=== PATIENT | female | born 1970 | race Caucasian/White ===

== ENCOUNTER 2016-04-09 11:29 | Emergency (ER) | payer MEDICARE, OTHER ==
[2016-04-09] MEDS ORDERED: ONDANSETRON HCL 4 MG/2 ML VIAL ONE ×2 (11:51→12:14)
[2016-04-09] MEDS ORDERED: HYDROmorphone HCL 1 MG/ML SYR ONE ×2 (11:59→12:13)
[2016-04-09] MEDS ORDERED: LORazepam 2 MG/ML INJ ONE (12:12)
--- NOTE | 2016-04-09 13:23 | ER NURSING DOCUMENTATION ---
Nurse's Notes [facility] Name:Kathy Moseley Age:46 yrs Sex:Female :1970 Arrival Date:04/09/2016 Time:11:29 Bed3 Private MD: Diagnosis:Intractable Vomiting;Chronic Back Pain Presentation: 04/09 10:15 Transition of care: Home. ma 11:37 Acuity: ABDIEL 3 cb 13:18 Presenting complaint: Patient states: Vomiting all night history of liver cirrhosis. ma 13:18 Method Of Arrival: Private Vehicle la Triage Assessment: 11:52 General: Appears distressed, ill, uncomfortable, Behavior is crying, restless. Pain: ma Complains of pain in xyphoid area and right lateral posterior chest. GI: Reports vomiting, since Last night. Historical: - Allergies: No known drug Allergies; - Home Meds: 1. Spironolactone Oral 2. Famotidine Oral 3. oxycodone 15 mg oral Tb12 1 tab every 12 hours q 4-6 hrs 4. Vistaril 50 mg oral cap 1 cap BID 5. Lasix 20 mg oral tab 2 tabs once daily 6. ondansetron HCl 4 mg oral tab daily 7. aspirin 325 mg oral tab Unknown 8. Probiotic Colon Care 1.5 billion cell oral cap - Tetanus: unknown. - Ebola Screening: : No symptoms or risks identified at this time. . - Immunization history: Flu Vaccine unknown. - Social history: Smoking status: unknown if patient ever smoked tobacco. Patient uses alcohol patient/guardian reports chronic longstanding heavy alcohol consumption. Screenin:53 Infectious Disease Risk Hepatitis Other: Possible, hx of cirrhosis, Unknown if ma diagnosed. Abuse screen: Denies threats or abuse. Nutritional screening: No deficits noted. Assessment: 12:20 GI: Abdomen is flat, non- distended. la 12:53 Reassessment: Patient states feeling better. Patient states symptoms have improved. ma Patient appears in no apparent distress at this time. Vital Signs: 11:37 BP 136 / 68; Pulse 73; Resp 24; Temp 98.2(O); Pulse Ox 99% on R/A; Weight 45.36 kg; cb Height 5 ft. 0 in. (152.40 cm); Pain 9/10; 11:48 BP 138 / 99; Pulse 70; Resp 14; Pulse Ox 99% ; ma 12:00 BP 125 / 89; Pulse 70; Pulse Ox 100% on R/A; ma 12:30 BP 95 / 65; Pulse 78; Pulse Ox 100% ; ma 13:17 BP 108 / 69; Pulse 77; Pulse Ox 95% ; ma 11:37 Body Mass Index 19.53 (45.36 kg, 152.40 cm) cb ED Course: 10:45 Inserted peripheral IV: 20 gauge in left antecubital area and blood collected. ma 11:30 Patient arrived in ED. ds 11:37 Triage completed. cb 11:38 Pearl Cohen, RN is Primary Nurse. ma 11:54 Valuables Given to family. Patient has correct armband on for positive identification. ma Placed in gown. Bed in low position. Call light in reach. Pulse ox on. NIBP on. Verbal reassurance given. Warm blanket given. 11:56 Jose Maria Carvajal MD is Attending Physician. tl1 12:53 Discontinued IV intact, bleeding controlled, pressure dressing applied. ma Administered Medications: 10:45 Drug: NS 0.9% 1000 ml; Route: IV; Rate: bolus; Site: left antecubital; Delivery: la [place]; 13:00 Follow up: IV Status: Completed infusion; IV Intake: 1000ml ma 11:52 Drug: Zofran 4 mg; Route: IVP; Rate: per protocol; Infused Over: 2 mins; Site: left la antecubital; 13:20 Follow up: Response: Nausea unchanged ma 11:57 Drug: Dilaudid 1 mg; Route: IVP; Rate: per protocol; Infused Over: 3 mins; Site: left la antecubital; 13:20 Follow up: Response: Pain is unchanged, physician notified ma 12:05 Drug: Zofran 8 mg; Route: IVP; Rate: per protocol; Infused Over: 2 mins; Site: left la antecubital; 13:20 Follow up: Response: Nausea is decreased ma 12:08 Drug: Dilaudid 1 mg; Route: IVP; Rate: per protocol; Infused Over: 3 mins; Site: left la antecubital; 13:21 Follow up: Response: Nausea is decreased ma 12:13 Drug: Ativan 0.5 mg; Route: IVP; Rate: per protocol; Infused Over: 3 mins; Site: left la antecubital; 13:21 Follow up: Response: Anxiety decreased ma Intake: 13:00 IV: 1000ml; Total: 1000ml. ma Outcome: 13:08 Discharge ordered by . tl1 13:19 Discharged to home ma 13:19 Condition: improved 13:19 Discharge instructions given to patient, Instructed on discharge instructions, follow up and referral plans. Demonstrated understanding of instructions, Prescriptions given X 1. 13:21 Patient left the ED. la 04/10 11:26 Discharge F/U Call: Unable to reach: no answer 04/11 10:22 Discharge F/U Call: Unable to reach: no answer Signatures: Maria Del Carmen Allred, RN RN Tara Rahman RN RN Pearl Valera, LISSETT RN ildefonso Matias, Britney, Jose Maria Hernandez MD MD tl1
--- NOTE | 2016-04-11 13:22 | ER PHYSICIAN DOCUMENTATION ---
Physician Documentation [facility] Name:Kathy Moseley Age:46 yrs Sex:Female :1970 Arrival Date:04/09/2016 Time:11:29 Bed3 Private MD: Jose Maria Alvarez Disposition: 04/09 12:30 Chart complete. tl1 Disposition: 04/09/16 13:08 Discharged to Home/Self Care. Impression: Intractable Vomiting, Chronic Back Pain. - Condition is Good. - Discharge Instructions: BACK PAIN (Acute or Chronic), CONSTIPATION (Adult), VOMITING (6y-Adult). - Prescriptions for Zofran 8 mg Oral Tablet - take 1 tablet by ORAL route every 12 hours; 20 tablet. - Medical Reconciliation form form. - Follow up: Private Physician; When: 4- 6 days; Reason: Recheck today's complaints, Continuance of care. - Problem is new. - Symptoms have improved. HPI: 11:30 This 46 yrs old Female presents to ER via Private Vehicle with complaints of tl1 Vomiting. 11:30 The patient presents to the emergency department with nausea, with vomiting. Onset: The tl1 symptom(s)/episode began/occurred suddenly, yesterday. 11:30 She is visiting from [facility] with family. She has chronic low back pain and takes tl1 oxycodone chronically for this. She says she occasionally gets nauseated for no apparent reason. This occurred last night and she says that Zofran has not worked. She has been unable to keep her pain medication or her Xanax down, and she is BIB family (twin sister) for evaluation. 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 She does have some abdominal soreness, and some pain with vomiting. There is nothing, however out of the ordinary for her and she has been through very similar episodes in the past. She feels like if she can get the pain and nausea under control, she'll be fine until she flies home tomorrow. She has enough pain meds. Historical: - Allergies: No known drug Allergies; - Home Meds: 1. Spironolactone Oral 2. Famotidine Oral 3. oxycodone 15 mg oral Tb12 1 tab every 12 hours q 4-6 hrs 4. Vistaril 50 mg oral cap 1 cap BID 5. Lasix 20 mg oral tab 2 tabs once daily 6. ondansetron HCl 4 mg oral tab daily 7. aspirin 325 mg oral tab Unknown 8. Probiotic Colon Care 1.5 billion cell oral cap - Tetanus: unknown. - Ebola Screening: : No symptoms or risks identified at this time. . - Immunization history: Flu Vaccine unknown. - Social history: Smoking status: unknown if patient ever smoked tobacco. Patient uses alcohol patient/guardian reports chronic longstanding heavy alcohol consumption. ROS: 11:30 Abdomen/GI: Positive for abdominal pain, nausea, vomiting, Negative for diarrhea, tl1 constipation, abdominal distension, hematemesis, black/tarry stool, rectal bleeding. 11:30 Back: Positive for pain with movement, of the lumbar area. 11:30 All other systems are negative. Exam: 11:30 Constitutional: The patient appears alert, awake, well developed, emaciated, in obvious tl1 distress, in obvious pain, restless, uncomfortable. 11:30 Head/face: Exam is negative for acute changes. 11:30 Eyes: Sclera: icterus, is not appreciated. 11:30 ENT: External ear(s): are unremarkable, Mouth: Oral mucosa: pink and intact, dry. 11:30 Neck: External neck: is normal, ROM/movement: is normal. 11:30 Cardiovascular: Rate: normal, Rhythm: regular, Heart sounds: normal, Edema: is not appreciated, JVD: is not appreciated. 11:30 Respiratory: the patient does not display signs of respiratory distress, Respirations: normal, Breath sounds: are normal. 11:30 Abdomen/GI: Inspection: abdomen appears normal, Bowel sounds: diminished, Palpation: soft, mild abdominal tenderness, in all quadrants, organomegaly is appreciated, hepatomegaly, Liver: is firm, is enlarged, palpable 5 cm(s) below rib margin, tenderness, that is mild. 11:30 Back: pain, is absent, ROM is normal, CVA tenderness, is absent, vertebral tenderness, is not appreciated. 11:30 Musculoskeletal/extremity: Exam is negative for acute changes. 11:30 Skin: Many, many spider hemangiomas.. 11:30 Neuro: Orientation: is normal, Mentation: is normal, Memory: is normal, Cranial nerves: grossly normal, Motor: moves all fours, Gait: is steady, at a normal pace, without difficulty, appropriate for age. Vital Signs: 11:37 BP 136 / 68; Pulse 73; Resp 24; Temp 98.2(O); Pulse Ox 99% on R/A; Weight 45.36 kg; cb Height 5 ft. 0 in. (152.40 cm); Pain 9/10; 11:48 BP 138 / 99; Pulse 70; Resp 14; Pulse Ox 99% ; ma 12:00 BP 125 / 89; Pulse 70; Pulse Ox 100% on R/A; ma 12:30 BP 95 / 65; Pulse 78; Pulse Ox 100% ; ma 13:17 BP 108 / 69; Pulse 77; Pulse Ox 95% ; ma 11:37 Body Mass Index 19.53 (45.36 kg, 152.40 cm) cb MDM: 11:56 Patient medically screened. tl1 12:30 Differential diagnosis: opioid withdrawal. Data reviewed: vital signs, nurses notes, tl1 and as a result, I will discharge patient. Counseling: I had a detailed discussion with the patient and/or guardian regarding: the historical points, exam findings, and any diagnostic results supporting the discharge/admit diagnosis, the need for outpatient follow up, to return to the emergency department if symptoms worsen or persist or if there are any questions or concerns that arise at home. Medication response: The patient's symptoms have resolved. Response to treatment: the patient's symptoms have resolved after treatment, and as a result, I will discharge patient. ED course: She was hydrated and pain was treated aggressively with dilaudid, nausea with zofran , and anxiety with ativan. At the end of her ED stay she felt as if she had returned to baseline and would be fine until she flies home tomorrow. I encouraged her to return to the ED for any worsening or concerning symptoms.. Dispensed Medications: 10:45 Drug: NS 0.9% 1000 ml; Route: IV; Rate: bolus; Site: left antecubital; Delivery: ma [place]; 13:00 Follow up: IV Status: Completed infusion; IV Intake: 1000ml ma 11:52 Drug: Zofran 4 mg; Route: IVP; Rate: per protocol; Infused Over: 2 mins; Site: left ma antecubital; 13:20 Follow up: Response: Nausea unchanged ma 11:57 Drug: Dilaudid 1 mg; Route: IVP; Rate: per protocol; Infused Over: 3 mins; Site: left wa antecubital; 13:20 Follow up: Response: Pain is unchanged, physician notified ma 12:05 Drug: Zofran 8 mg; Route: IVP; Rate: per protocol; Infused Over: 2 mins; Site: left wa antecubital; 13:20 Follow up: Response: Nausea is decreased ma 12:08 Drug: Dilaudid 1 mg; Route: IVP; Rate: per protocol; Infused Over: 3 mins; Site: left wa antecubital; 13:21 Follow up: Response: Nausea is decreased ma 12:13 Drug: Ativan 0.5 mg; Route: IVP; Rate: per protocol; Infused Over: 3 mins; Site: left wa antecubital; 13:21 Follow up: Response: Anxiety decreased ma Signatures: Maria Del Carmen Allred RN RN cb Abuso, Melanie, RN RN ma Leigh, Tom, MD MD tl1
== END 2016-04-09 13:21 | disposition home or self-care (01) ==
LOC: EDBD 11:29 → ER 11:29
DX: R11.2 Nausea with vomiting, unspecified (principal); R10.84 Generalized abdominal pain; E86.0 Dehydration; M54.5 Low back pain; G89.29 Other chronic pain; K70.40 Alcoholic hepatic failure without coma; Z79.82 Long term (current) use of aspirin; Z79.899 Other long term (current) drug therapy
CPT/HCPCS: 96361; 96374; 96375; 99284; J1170; J2060; J2405